=== PATIENT | female | born 1985 | race Caucasian/White ===

== ENCOUNTER 2022-03-12 01:18 | Emergency (ER) | payer OTHER ==
[~2022-03-12 01:18] MED LIST: AMOXICILLIN500 MG PO; IBU800 MG PO; PENVEE K 250 M250 MG PO
== END 2022-03-12 04:38 | disposition left against medical advice (07) ==
LOC: ER1 01:18
DX: Z53.21 Procedure and treatment not carried out due to patient leaving prior to being seen by health care provider (principal)